=== PATIENT | male | born 1945 | race Caucasian/White ===

== ENCOUNTER → 2017-11-25 | Outpatient (CLI) | payer MEDICARE, BC | END | disposition home or self-care (01) | LOC: CDC 15:47 | DX: Z01.810 Encounter for preprocedural cardiovascular examination (principal); R94.31 Abnormal electrocardiogram [ECG] [EKG] | CPT/HCPCS: 93000 ==

== ENCOUNTER 2017-12-02 21:50 | Inpatient (IN) | payer OTHER, BC ==
[~2017-12-02] VITALS: Ht 177.8 cm; Wt 96.0 kg
[~2017-12-02 21:50] MED LIST: CANASA1000 MG PR; DELZICOL400 M1 PO; DIOVAN320 MG PO; HYDROCHLOROTHIA25 MG PO; IMODIUM A-D2 M2 PO; LO-DOSE ASPIRIN81 M2 PO; OCUVITE ADULT1 EAC1 PO; PLAVIX75 MG PO; PRAVACHOL40 MG PO; TYLENOL ARTHRI650 MG PO; VISKEN10 MG PO
[2017-12-03 08:27] VITALS: BP 187/86
[2017-12-03 21:10] VITALS: BP 97/55
[2017-12-04 00:57] VITALS: BP 119/57
[2017-12-04 04:48] VITALS: BP 105/71
[2017-12-04 08:15] VITALS: BP 103/54
[2017-12-04] MEDS ORDERED: HYDROCODON-ACE1 EAC7 PO (09:21)
[2017-12-04 10:10] VITALS: BP 105/59
[2017-12-04 11:46] VITALS: BP 121/60
== END 2017-12-04 12:56 | disposition home or self-care (01) | DRG 39 ==
LOC: ENRESERV 21:50 → 2SOUTH 12-03 07:33 → ENRESERV 12-03 18:49 → 4EAST 12-03 21:01
DX: I65.22 Occlusion and stenosis of left carotid artery (principal); I10 Essential (primary) hypertension; K21.9 Gastro-esophageal reflux disease without esophagitis; Z79.02 Long term (current) use of antithrombotics/antiplatelets; Z79.82 Long term (current) use of aspirin
CPT/HCPCS: 93005; C1768; J0131; J0690; J1644; J1650; J2405; J2720; J2795; J3010; J7120; S0020